=== PATIENT | female | born 1950 | race Two or more races ===

== ENCOUNTER 2017-07-10 10:49 | Outpatient (CLI) | payer OTHER ==
[~2017-07-10 10:49] MED LIST: ATIVAN0.5 MG PO; CALCIO DEL MAR500 MG PO; CYMBALTA20 MG PO; EVISTA60 MG PO; KETO10TA2 PO; LYRICA50 MG PO; ORPH100T PO; SULFAMETHOXAZOL1 TA6 PO
== END 2017-07-10 11:30 | disposition home or self-care (01) ==
LOC: NUCLEAR 10:49
DX: M81.0 Age-related osteoporosis without current pathological fracture (principal)

== ENCOUNTER 2017-09-02 12:21 | Outpatient (CLI) | payer OTHER | END 2017-09-02 12:30 | disposition home or self-care (01) | LOC: RAD 501 12:21 | DX: S32.000A Wedge compression fracture of unspecified lumbar vertebra, initial encounter for closed fracture (principal) ==

== ENCOUNTER 2017-09-03 09:45 | Outpatient (CLI) | payer OTHER | END 2017-09-03 17:00 | disposition home or self-care (01) | LOC: TOM 09:45 | DX: K42.9 Umbilical hernia without obstruction or gangrene (principal); K40.41 Unilateral inguinal hernia, with gangrene, recurrent ==

== ENCOUNTER 2017-11-06 07:00 | Inpatient (IN) | payer OTHER ==
[~2017-11-06] VITALS: Ht 147.3 cm; Wt 55.3 kg
[2017-11-06] MEDS ORDERED: LIPITOR20 MG PO (08:51)
[2017-11-06] MEDS ORDERED: PROGESTERONE100 MG PO (08:52)
[2017-11-06] MEDS ORDERED: SYNTHROID50 MCG PO (08:53)
[2017-11-06] MEDS ORDERED: XALATAN (08:53)
[2017-11-06] MEDS ORDERED: [UNRECOGNIZED DRUG - OTHER] (08:53)
[2017-11-13] MEDS ORDERED: PERCOCET 5-3251 EACH PO (07:45)
[2017-11-13] MEDS ORDERED: NEURONTIN300 MG PO (07:45)
[2017-11-13] MEDS ORDERED: MIRALAX17 GM PO (07:45)
== END 2017-11-14 13:15 | disposition home or self-care (01) | DRG 355 ==
LOC: O/R 11-12 06:00 → SURG 11-12 06:00 → SURH 11-12 07:00 → SURG 11-12 12:01
PROVIDERS: Surgery
PROC: 0KXL4Z6 Transfer Left Abdomen Muscle, Transverse Rectus Abdominis Myocutaneous Flap, Percutaneous Endoscopic Approach (ICD-10-PCS; 2017-11-12)
PROC: 0WUF4JZ Supplement Abdominal Wall with Synthetic Substitute, Percutaneous Endoscopic Approach (ICD-10-PCS; principal; 2017-11-12 07:00)
DX: K43.0 Incisional hernia with obstruction, without gangrene (principal); E03.8 Other specified hypothyroidism; H40.89 Other specified glaucoma; E78.4 Other hyperlipidemia

== ENCOUNTER 2018-05-13 09:49 | Outpatient (CLI) | payer OTHER ==
[~2018-05-13 09:49] MED LIST changes: +LIPITOR20 MG PO; +MIRALAX17 GM PO; +NEURONTIN300 MG PO; +PERCOCET 5-3251 EACH PO; +PROGESTERONE100 MG PO; +SYNTHROID50 MCG PO; +XALATAN; +[UNRECOGNIZED DRUG - OTHER]
== END 2018-05-13 15:10 | disposition home or self-care (01) ==
LOC: RAD 09:49 → MAMO-SONO 10:15 → RAD 15:10
DX: N20.0 Calculus of kidney (principal); E03.8 Other specified hypothyroidism; E04.1 Nontoxic single thyroid nodule

== ENCOUNTER 2018-05-31 09:14 | Outpatient (CLI) | payer OTHER | END 2018-05-31 09:16 | disposition home or self-care (01) | LOC: MAMO-SONO 09:14 | DX: Z12.31 Encounter for screening mammogram for malignant neoplasm of breast (principal); Z87.898 Personal history of other specified conditions; N64.89 Other specified disorders of breast ==

== ENCOUNTER 2019-08-04 13:21 | Outpatient (CLI) | payer OTHER | END 2019-08-04 13:24 | disposition home or self-care (01) | LOC: NUCLEAR 13:21 | DX: M81.0 Age-related osteoporosis without current pathological fracture (principal) ==

== ENCOUNTER 2020-12-14 10:25 | Emergency (ER) | payer OTHER ==
[~2020-12-14] VITALS: Ht 144.8 cm; Wt 60.8 kg
[2020-12-14] MEDS ORDERED: [UNRECOGNIZED DRUG - OTHER] TP (11:08)
[2020-12-14] MEDS ORDERED: [UNRECOGNIZED DRUG - OTHER] (11:09)
[2020-12-14] MEDS ORDERED: [UNRECOGNIZED DRUG - OTHER] (11:09)
[2020-12-14] MEDS ORDERED: TESSALON PERLE100 M1 PO (16:21)
[2020-12-14] MEDS ORDERED: KETO10TA2 PO (16:21)
[2020-12-14] MEDS ORDERED: ZITHROMAX500 MG PO (16:21)
[2020-12-14] MEDS ORDERED: MUCINEX DM ER1 EAC1 PO (16:21)
== END 2020-12-14 17:08 | disposition home or self-care (01) ==
LOC: ER 10:25
DX: J06.9 Acute upper respiratory infection, unspecified (principal); Z11.52 Encounter for screening for COVID-19

== ENCOUNTER 2020-12-27 13:07 | Outpatient (CLI) | payer OTHER ==
[~2020-12-27 13:07] MED LIST changes: +MUCINEX DM ER1 EAC1 PO; +TESSALON PERLE100 M1 PO; +ZITHROMAX500 MG PO; +[UNRECOGNIZED DRUG - OTHER]; +[UNRECOGNIZED DRUG - OTHER]; +[UNRECOGNIZED DRUG - OTHER] TP
== END 2020-12-27 14:16 | disposition home or self-care (01) ==
LOC: MAMO-SONO 13:07
PROVIDERS: ATTEND Specialist
DX: Z12.31 Encounter for screening mammogram for malignant neoplasm of breast (principal); N64.59 Other signs and symptoms in breast; N63.0 Unspecified lump in unspecified breast

== ENCOUNTER 2021-06-14 15:01 | Emergency (ER) | payer OTHER ==
[~2021-06-14] VITALS: Ht 147.3 cm; Wt 61.2 kg
[2021-06-14] MEDS ORDERED: PRED FORTE5 ML (15:27)
[2021-06-14] MEDS ORDERED: TIMOLOL MALEATE5 M4 (15:27)
[2021-06-14] MEDS ORDERED: AZOPT10 ML (15:27)
[2021-06-14] MEDS ORDERED: ILEVRO3 ML (15:27)
[2021-06-14] MEDS ORDERED: VALTREX1000 MG (15:27)
[2021-06-14] MEDS ORDERED: PERCOCET 5-3251 EACH PO (19:27)
== END 2021-06-14 20:44 | disposition home or self-care (01) ==
LOC: ER 15:01
DX: S82.52XA Displaced fracture of medial malleolus of left tibia, initial encounter for closed fracture (principal); M79.672 Pain in left foot; M79.605 Pain in left leg; W18.09XA Striking against other object with subsequent fall, initial encounter; Y93.89 Activity, other specified; Y92.89 Other specified places as the place of occurrence of the external cause; Y99.8 Other external cause status

== ENCOUNTER 2021-06-24 05:13 | Day surgery (SDC) | payer OTHER ==
[~2021-06-24 05:13] MED LIST changes: +AZOPT10 ML; +ILEVRO3 ML; +PRED FORTE5 ML; +TIMOLOL MALEATE5 M4; +VALTREX1000 MG
== END 2021-06-24 13:45 | disposition home or self-care (01) ==
LOC: CIR.AMB 05:13
PROVIDERS: ATTEND Orthopaedic Surgery
DX: S82.842A Displaced bimalleolar fracture of left lower leg, initial encounter for closed fracture (principal); S92.192A Other fracture of left talus, initial encounter for closed fracture; S93.492A Sprain of other ligament of left ankle, initial encounter; Z20.822 Contact with and (suspected) exposure to COVID-19; B96.5 Pseudomonas (aeruginosa) (mallei) (pseudomallei) as the cause of diseases classified elsewhere
CPT/HCPCS: 27814; 27695; 28445; 87181; C1776

== ENCOUNTER 2021-07-18 11:25 | Outpatient (CLI) | payer OTHER | END 2021-07-18 11:26 | disposition home or self-care (01) | LOC: RAD 11:25 | PROVIDERS: ATTEND Orthopaedic Surgery | DX: S93.432D Sprain of tibiofibular ligament of left ankle, subsequent encounter (principal); S82.842D Displaced bimalleolar fracture of left lower leg, subsequent encounter for closed fracture with routine healing ==

== ENCOUNTER 2021-07-27 08:22 | Outpatient (CLI) | payer OTHER | END 2021-07-27 08:23 | disposition home or self-care (01) | LOC: LAB 08:22 | PROVIDERS: ATTEND Orthopaedic Surgery | DX: E55.9 Vitamin D deficiency, unspecified (principal); M85.9 Disorder of bone density and structure, unspecified; E56.1 Deficiency of vitamin K ==

== ENCOUNTER 2021-08-29 13:01 | Outpatient (CLI) | payer OTHER | END 2021-08-29 13:08 | disposition home or self-care (01) | LOC: RAD 13:01 | PROVIDERS: ATTEND Orthopaedic Surgery | DX: S93.432D Sprain of tibiofibular ligament of left ankle, subsequent encounter (principal); S82.842D Displaced bimalleolar fracture of left lower leg, subsequent encounter for closed fracture with routine healing ==

== ENCOUNTER 2021-12-11 08:07 | Outpatient (CLI) | payer OTHER | END 2021-12-11 08:11 | disposition home or self-care (01) | LOC: RAD 08:07 | PROVIDERS: ATTEND Orthopaedic Surgery | DX: S82.842D Displaced bimalleolar fracture of left lower leg, subsequent encounter for closed fracture with routine healing (principal); M20.32 Hallux varus (acquired), left foot ==

== ENCOUNTER 2021-12-11 13:13 | Outpatient (CLI) | payer OTHER | END 2021-12-11 13:14 | disposition home or self-care (01) | LOC: NUCLEAR 13:13 | PROVIDERS: ATTEND Orthopaedic Surgery | DX: M81.0 Age-related osteoporosis without current pathological fracture (principal) ==

== ENCOUNTER 2021-12-27 10:00 | Outpatient (CLI) | payer OTHER | END 2021-12-27 10:06 | disposition home or self-care (01) | LOC: LAB 10:00 | PROVIDERS: ATTEND Orthopaedic Surgery | DX: I10 Essential (primary) hypertension (principal); Z76.89 Persons encountering health services in other specified circumstances; D64.9 Anemia, unspecified; E88.9 Metabolic disorder, unspecified; D68.8 Other specified coagulation defects; N39.0 Urinary tract infection, site not specified; B95.62 Methicillin resistant Staphylococcus aureus infection as the cause of diseases classified elsewhere; E11.9 Type 2 diabetes mellitus without complications ==

== ENCOUNTER 2022-01-30 08:03 | Outpatient (CLI) | payer OTHER | END 2022-01-30 08:07 | disposition home or self-care (01) | LOC: RAD 08:03 | PROVIDERS: ATTEND Orthopaedic Surgery | DX: M20.32 Hallux varus (acquired), left foot (principal) ==

== ENCOUNTER 2022-07-03 07:57 | Outpatient (CLI) | payer OTHER | END 2022-07-03 08:02 | disposition home or self-care (01) | LOC: RAD 07:57 | PROVIDERS: ATTEND Orthopaedic Surgery | DX: M20.32 Hallux varus (acquired), left foot (principal) ==

== ENCOUNTER 2022-07-21 12:11 | Outpatient (CLI) | payer OTHER | END 2022-07-21 12:17 | disposition home or self-care (01) | LOC: MAMO-SONO 12:11 | PROVIDERS: ATTEND Obstetrics & Gynecology Gynecology | DX: Z12.31 Encounter for screening mammogram for malignant neoplasm of breast (principal); N64.9 Disorder of breast, unspecified; N64.4 Mastodynia; N95.0 Postmenopausal bleeding ==

== ENCOUNTER → 2022-08-05 | Outpatient (CLI) | payer OTHER | END | disposition home or self-care (01) | LOC: SONOGRAMA 10:22 | PROVIDERS: ATTEND Specialist | DX: K75.81 Nonalcoholic steatohepatitis (NASH) (principal); J45.991 Cough variant asthma ==